=== PATIENT | male | born 1960 | race Caucasian/White ===

== ENCOUNTER 2018-08-02 06:58 | Day surgery (SDC) | payer OTHER ==
[2018-07-31 12:03] LABS: Absolute Lymphocytes (CBC) 2.3 K/uL (0.7-4.9); Absolute Monocytes 0.4 K/uL (0.1-1.3); Absolute Neutrophil 3.1 K/uL (1.8-8.0); Basophils % 1.2 % (0-1.3); Eosinophils % 1.6 % (0-4.4); Hematocrit 43.2 % (39.6-49.0); Lymphocytes % 38.3 % (15.3-44.8); MCH 31.4 pg (27.0-35.0); MCV 89.1 fL (80-100); MPV 9.1 fL (7.6-11.3); Monocytes % 6.5 % (3.3-12.3); RBC Red Blood Cell Count 4.85 M/uL (4.33-5.43)
[2018-07-31 12:06] LABS: Protime INR 1.08
--- NOTE | 2018-07-31 12:12 | RAD REPORT ---
EXAM DESCRIPTION: Herber Zafar (2 Views)07/31/2018 12:05 pm CLINICAL HISTORY: Preop for cardiac catheterization COMPARISON: None FINDINGS: The lungs appear clear of acute infiltrate. The heart is normal size IMPRESSION: No acute abnormalities displayed
[2018-07-31 12:14] LABS: Potassium 4.3 mmol/L (3.5-5.1)
--- NOTE | 2018-07-31 14:01 | EKG ---
Test Date: 2018-07-31 Test Time: 11:30:[address] Vendor: ELVI MEASUREMENT RESULTS: Intervals: Rate: 64 WA: 146 QRSD: 92 QT: 424 QTc: 437 [place]: P: 58 WA: 146 QRS: 36 T: 51 INTERPRETIVE STATEMENTS: Normal sinus rhythm Incomplete right bundle branch block Borderline ECG Compared to ECG 05/08/2001 01:31:00 No significant changes Electronically Signed On 07-31-18 14:00:47 [employer] by Slim Robert
[2018-08-02] MEDS ORDERED: HEPA 1000U/500MLS 2,000 UNIT/1,000 ML BAG IV ONE (07:18)
[2018-08-02] MEDS ORDERED: NA CHLORIDE 0.9% 0 ML ONE (07:19)
[2018-08-02] MEDS ORDERED: LIDOCAINE 1% MPF 30 ML VIAL ONE (07:19)
[2018-08-02] MEDS ORDERED: ATROPINE SULF 1 MG/10 ML SYR IV ONE (07:19)
[2018-08-02] MEDS ORDERED: FENTANYL CITR 100 MCG/2 ML ONE (07:56)
[2018-08-02] MEDS ORDERED: MIDAZOLAM HCL 2 MG/2 ML INJ ONE ×2 (07:56→08:11)
[2018-08-02] MEDS ORDERED: HEPARIN 5000 UNIT/ML 1 ML VIAL ONE (08:06)
[2018-08-02] MEDS ORDERED: NICARDIPINE HCL 25 MG/10 ML IV ONE (08:06)
[2018-08-02] MEDS ORDERED: NITROGLYCERIN 100 MCG/ML SYR (for cath lab use only) IV ONE ×2 (08:07→08:12)
[2018-08-02] MEDS ORDERED: NITROGLYCERIN/D5W 25 MG/250 ML BTL IV ONE (08:13)
--- NOTE | 2018-08-02 19:27 | OP ---
Surgeon: Slim Robert MD Primary Care Physician: Andrae Mckinnon DO. Procedure: Left heart catheterization, coronary, left ventricular angiography. Findings: The patient has normal coronary arteries, normal right dominant system. No stenosis. The re is a mid LAD myocardial bridge, which is of no clinical consequence. Ejection fraction is normal, left ventricular end-diastolic pressure 9 and aortic pressure during the procedure was 117/71. Procedure In Detail: The patient was brought to the cardiac recyclable products sorter in a fasting state, sedated wit h Versed and fentanyl. Prepared and draped in usual sterile fashion. Right radial approach was used . 1% lidocaine 1 cc was used to anesthetize the skin over the artery. The artery was entered using a 21-gauge needle. It was then cannulated with a 0.021 inch diameter guidewire. This was used via t he modified Seldinger technique to place a 6-Czech Terumo radial sheath. The sheath was flushed and radial cocktail was given. A TIG catheter was advanced into the ascending aorta using fluoroscopy a nd a Riskclickumo short radius J-tip guidewire. The same catheter was used for angiogram left coronary, ri ght coronary, and left ventricle. At the end of the procedure, the catheter was withdrawn with the w adela extended beyond the tip. The sheath was again flushed, removed, and the arteriotomy closed with a TR band. Estimated Blood Loss: 5 cc. Animal Groomer: Joslyn Kelly. Complications: None. ERLINDA/DORIS Voice ID: [id number] Report ID: [id number]
== END 2018-08-02 11:05 | disposition home or self-care (01) ==
LOC: CCL 06:58
PROVIDERS: ATTEND Internal Medicine
PROC: 4A023N7 Measurement of Cardiac Sampling and Pressure, Left Heart, Percutaneous Approach (ICD-10-PCS; principal; 2018-08-02)
PROC: B201YZZ Plain Radiography of Multiple Coronary Arteries using Other Contrast (ICD-10-PCS; 2018-08-02)
PROC: B205YZZ Plain Radiography of Left Heart using Other Contrast (ICD-10-PCS; 2018-08-02)
DX: R07.89 Other chest pain (principal); Z82.49 Family history of ischemic heart disease and other diseases of the circulatory system
CPT/HCPCS: 36415; 71046; 80048; 85025; 85610; 85730; 93005; 93458; C1893; J0583; J1644; J2250; J3010